=== PATIENT | male | born 1985 | race Caucasian/White ===

== ENCOUNTER 2022-01-26 21:38 | Emergency (ER) | payer SELFPAY ==
[~2022-01-26] VITALS: Ht 188 cm; Wt 84.8 kg
[2022-01-26 21:58] VITALS: BP 121/69
== END 2022-01-27 00:05 | disposition home or self-care (01) ==
LOC: ER 21:41
DX: S61.211D Laceration without foreign body of left index finger without damage to nail, subsequent encounter (principal); W26.0XXD Contact with knife, subsequent encounter